=== PATIENT | male | born 1950 | race Caucasian/White ===

== ENCOUNTER 2016-06-08 13:38 | Emergency (ER) | payer MEDICARE ==
[~2016-06-08 13:38] MED LIST: ASPIRIN EC81 MG PO; CENTRUM TABLET1 TAB PO; CLARITIN10 M8 PO; GLUCOTEN CAPLE1 EACH PO; GLUCOTEN CAPLET1 TAB PO; PROBIOTIC; VITAMIN B12; VITAMIN C1000 MG PO
[2016-06-08] MEDS ORDERED: NORVASC5 M2 PO (13:51)
[2016-06-08 14:51] LABS: BASO % 0.3 % (0-2); EOS % 2.6 % (0-7); EOSINOPHIL ABSOLUTE COUNT 0.2 tho/cmm (0.0-0.7); HGB-HEMOGLOBIN 14.5 gm/dl (13.5-17.0); IMMATURE GRANULOCYTES ABSOLUTE 0.03 tho/cmm (0-0.03); IMMATURE GRANULOCYTES PERCENT 0.3 % (0-0.3); LYMPH % 32.4 % (20-45); LYMPH ABSOLUTE COUNT 2.9 tho/cmm (0.8-4.5); MCHC MEAN CORPUSCULAR HGB CONC 36.3 % (32.0-36.0); MCV (MEAN CELL VOLUME) 93.7 fl (82.0-96.0); MEAN PLATELET VOLUME 9.5 cmc (9.4-12.4); MONO % 9.4 % (0-12); MONOCYTE ABSOLUTE COUNT 0.8 tho/cmm (0.0-1.2); NEUTROPHIL ABSOLUTE COUNT 4.9 tho/cmm (1.6-8.0); NEUTROPHIL-AUTOMATED 4.9 tho/cmm (1.6-8.0); PLATELET COUNT 195 tho/cmm (150-450); RED BLOOD COUNT 4.27 mil/cmm (4.40-5.70); RED CELL DISTRIBUTION WIDTH 13.7 % (12.4-16.4); WHITE BLOOD COUNT 8.8 tho/cmm (4.0-10.0)
[2016-06-08 14:54] LABS: URINE BILIRUBIN NEGATIVE (NEG); URINE BLOOD SMALL (NEG); URINE GLUCOSE (UA) NEGATIVE (NEG); URINE KETONE NEGATIVE (NEG); URINE LEUKOCYTE ESTERASE NEGATIVE (NEG); URINE NITRITE NEGATIVE (NEG); URINE PROTEIN NEGATIVE (NEG)
[2016-06-08 14:55] LABS: URINE APPEARANCE CLEAR; URINE COLOR YELLOW
[2016-06-08 15:01] LABS: URINE EPITHELIAL CELLS 0 /[HPF] (0-10); URINE RBC 0-1 /[HPF] (0-5); URINE WBC 0 /[HPF] (0-5)
[2016-06-08 15:09] LABS: ANION GAP 10 mmol/L (0-20); BLOOD UREA NITROGEN 14 mg/dl (6-24); CALCIUM 8.8 mg/dl (8.5-10.5); CARBON DIOXIDE-VENOUS 29 mmol/L (22-32); CHLORIDE 106 mmol/l (96-110); CREATININE 0.97 mg/dl (0.60-1.30); GLUCOSE 132 mg/dL (70-110); SODIUM 141 mmol/L (135-145); T4 (THYROXINE) 9.1 ug/dl (5.0-12.6); eGFR VALUE FOR BLACK >90 mL/Min
[2016-06-08 15:11] LABS: POTASSIUM 4.4 mmol/L (3.7-5.1)
[2016-06-08 15:13] LABS: TSH-THYROID STIMULATING HORM. 2.89 uIU/ml (0.40-3.80)
== END 2016-06-08 16:12 ==
LOC: EDMED 13:38
PROVIDERS: Physician Assistant
DX: R53.83 Other fatigue (principal); R73.9 Hyperglycemia, unspecified; I10 Essential (primary) hypertension; I25.10 Atherosclerotic heart disease of native coronary artery without angina pectoris; Z90.49 Acquired absence of other specified parts of digestive tract
CPT/HCPCS: J7030